=== PATIENT | male | born 1960 | race Asian ===

== ENCOUNTER 2018-09-19 21:07 | Emergency (ER) | payer BC ==
--- NOTE | 2018-09-19 21:09 | ED Physician Documentation ---
PD HPI ABD PAIN - Stated complaint Stated Complaint: ABD PX - History obtained from History obtained from: Patient - History of Present Illness Timing - onset: Enter time (13:00), Today Timing - details: Abrupt onset Pain level now: 6 Quality: Pain Location: LUQ, LLQ Radiation: Other (periumbilical) Improved by: Other (nothing) Worsened by: Other (no exacerbating factors) Associated symptoms: No: Fever, Nausea, Vomiting, Diarrhea, Constipation Similar symptoms before: Has not had sx before Recently seen: Not recently seen - Additional information Additional information: sudden onset left-sided abdominal pain since 1 PM today shortly after eating "a greasy meal" (per patient). denies nausea/vomiting. Pain is constant without exacerbating or ameliorating factors. Review of Systems Constitutional: denies: Fever, Chills, Sweats Cardiac: reports: Reviewed and negative Respiratory: reports: Reviewed and negative GI: reports: Abdominal Pain. denies: Abdominal Swelling, Nausea, Vomiting, Constipation, Diarrhea : denies: Dysuria, Frequency, Hematuria (no visible hematuria, although patient says 1 week ago he had routine testing by PMD and was told that there was trace blood on macro, none seen on micro) Musculoskeletal: denies: Back pain PD PAST MEDICAL HISTORY - Past Medical History Past Medical History: No - Past Surgical History Past Surgical History: Yes General: Other (umbilical and inguinal hernia repairs) - Present Medications Home Medications: Ambulatory Orders Medication Instructions Recorded Confirmed Oxycodone HCl/Acetaminophen 1 - 2 each PO Q6H PRN #14 tablet 09/19/18 [Percocet 5-325 mg Tablet] Tamsulosin [Flomax] 0.4 mg PO DAILY #10 capsule 09/19/18 - Allergies Allergies/Adverse Reactions: Allergies Allergy/AdvReac Type Severity Reaction Status Date / Time ibuprofen AdvReac Hives Verified 09/19/18 21:12 - Social History Does the pt smoke?: No PD ED PE NORMAL - Vitals Vital signs reviewed: Yes - General General: Alert and oriented X 3, No acute distress, Well developed/nourished - HEENT HEENT: Moist mucous membranes - Cardiac Cardiac: RRR, No murmur - Respiratory Respiratory: No respiratory distress, Clear bilaterally - Abdomen Abdomen: Normal bowel sounds, Soft, Non tender, Non distended, No organomegaly - Back Back: No CVA TTP - Derm Derm: Normal color, Warm and dry - Extremities Extremities: No edema Results - Vitals Vitals: Vital Signs - 24 hr 09/19/18 09/19/18 09/19/18 21:09 21:11 23:25 Temperature 36.1 C L Heart Rate 84 84 79 Respiratory 16 16 17 Rate Blood Pressure 179/106 H 179/106 H 163/111 H O2 Saturation 96 96 95 Oxygen O2 Source Room air - Labs Labs: Laboratory Tests 09/19/18 09/19/18 09/19/18 21:35 21:35 21:41 WBC 6.7 RBC 4.79 Hgb 14.6 Hct 44.2 MCV 92.3 MCH 30.5 MCHC 33.0 RDW 12.5 Plt Count 167 MPV 11.2 Neut # (Auto) 4.5 Lymph # (Auto) 1.4 L Hughes # (Auto) 0.6 Eos # (Auto) 0.2 Baso # (Auto) 0.0 Absolute Nucleated RBC 0.00 Nucleated RBC % 0.0 Sodium 142 Potassium 3.6 Chloride 104 Carbon Dioxide 24 Anion Gap 14.0 H BUN 19 Creatinine 1.0 Estimated GFR (MDRD) 77 L Glucose 149 H Calcium 8.8 Total Bilirubin 0.8 AST 24 ALT 25 Alkaline Phosphatase 62 Total Protein 6.7 Albumin 3.7 Globulin 3.0 Albumin/Globulin Ratio 1.2 Lipase 22 Urine Color YELLOW Urine Clarity HAZY Urine pH 5.0 Ur Specific Adger 1.025 Urine Protein NEGATIVE Urine Glucose (UA) NEGATIVE Urine Ketones TRACE Urine Occult Blood LARGE H Urine Nitrite NEGATIVE Urine Bilirubin NEGATIVE Urine Urobilinogen 0.2 (NORMAL) Ur Leukocyte Esterase NEGATIVE Urine RBC TNTC H Urine WBC 0-3 Ur Squamous Epith Cells NONE SEEN Urine Bacteria None Seen Urine Yeast PRESENT Ur Microscopic Review INDICATED Urine Culture Comments NOT INDICATED - Rads (name of study) CT A/P Radiology: Prelim report reviewed, See rad report PD MEDICAL DECISION MAKING - ED course Complexity details: reviewed results, re-evaluated patient, considered differential, d/w patient Departure - Departure Disposition: 01 Home, Self Care Clinical Impression: Renal colic Condition: Good Assessment: PT NAME: MINERVA MANDUJANO MR#: [id number] REG ER/ED AGE: 58 CI DT/TM: 09/19/18 PCP: : 1960 ATT: SEX: M ORD: Sam Conner Cristela malone MD EXAM: [id number] CT/ABPEWO ([id number]) Reason: left flank pain, hematuria Procedure Date: 09/19/2018 Accession Number: [id number] / [id number] Procedure: CT - Abdomen/Pelvis WO CPT Code: FULL RESULT: EXAM: CT ABDOMEN AND PELVIS (CT KUB) WITHOUT CONTRAST. EXAM DATE: 09/19/2018 10:25 PM. CLINICAL HISTORY: Left-sided flank pain since 8 PM. COMPARISONS: None. TECHNIQUE: Routine axial helical CT imaging was performed through the abdomen and pelvis without IV contrast. Reconstructions: Coronal and sagittal. In accordance with CT protocol optimization, one or more of the following dose reduction techniques were utilized for this exam: automated exposure control, adjustment of mA and/or KV based on patient size, or use of iterative reconstructive technique. FINDINGS: Right Kidney/Ureter: No stones. No hydronephrosis or hydroureter. No definite renal mass within the confines of a non-contrast exam. Left Kidney/Ureter: Mild left hydroureteronephrosis noted, secondary to an obstructing stone at the left UVJ measuring 4.3 mm (image 127 series 3). The stone measures 472 Hounsfield units in density. No additional intrarenal stones are seen within the left kidney. There is a 1.8 cm exophytic lesion arising from the posterior lateral portion of the left mid kidney (image 62 series 3). This measures 21 Hounsfield units in density. Abdominal Solid Organs: There is a large geographic low-density replacing the right hepatic lobe, predominantly involving segment 8, segment 7, and a small portion of segment 5/6. This may be geographic fatty infiltration. Less likely possibility is an infiltrative neoplasm. No hepatic contour deformity noted, favoring fatty infiltration. Contracted gallbladder. Other abdominal parenchymal organs are without significant abnormality within the confines of a noncontrast exam. Bowel: No evidence of bowel obstruction. There is mild pancolonic diverticulosis, including involvement of the right hemicolon. No evidence of acute diverticulitis demonstrated. Average retained fecal matter. Duodenal diverticulum arising from the second portion noted. Appendix: Normal. Lymph Nodes: No definite pathologic lymphadenopathy. Fluid: No significant ascites. Vasculature: Normal caliber aorta. Pelvis: No bladder stones. There is a small to medium fat-containing left inguinal hernia. Bones: No definite suspicious bony lesions demonstrated. Lower Chest: No significant lung base consolidation or effusion. IMPRESSION: 1. Mild left hydroureteronephrosis secondary to an obstructing 4.3 mm stone at the left UVJ. 2. No intrarenal stones are noted. 3. Indeterminate partly exophytic lesion measuring 1.8 cm arising posterior laterally from the left mid kidney. This measures 21 Hounsfield units in density. Attention on the below recommended follow-up MRI would be helpful. 4. There is a large geographic low-density within the right hepatic lobe, involving segment 7, 8, 6, and 5. This is favored to represent a fatty infiltration. However subtle infiltrative neoplasm difficult to exclude with certainty. This could be further assessed with MRI of the liver without and with Eovist contrast material at 4 weeks. [facility] Leather Splitter: Reading Radiologist: Prieto Fairchild MD Releasing Radiologist: Prieto Fairchild MD Released Date Time: 09/19/182299 Report 99 cc: Sam Britton MD [employer] Supervisor Name: Prieto Fairchild Provider ID: [email or web address] Instructions: ED Stone Renal W Colic Prescriptions: Oxycodone HCl/Acetaminophen [Percocet 5-325 mg Tablet] 1 - 2 each PO Q6H PRN #14 tablet PRN Reason: pain Tamsulosin [Flomax] 0.4 mg PO DAILY #10 capsule Comments: Follow up with urology: contact your primary care physician's office or your insurance provider to discuss obtaining a referral. You might have to be seen by your primary care provider first. PT NAME: MINERVA MANDUJANO MR#: [id number] REG ER/ED AGE: 58 CI DT/TM: 09/19/18 PCP: : 1960 ATT: SEX: M ORD: Sam malone MD EXAM: [id number] CT/ABPEWO ([id number]) Reason: left flank pain, hematuria Procedure Date: 09/19/2018 Accession Number: [id number] / [id number] Procedure: CT - Abdomen/Pelvis WO CPT Code: FULL RESULT: EXAM: CT ABDOMEN AND PELVIS (CT KUB) WITHOUT CONTRAST. EXAM DATE: 09/19/2018 10:25 PM. CLINICAL HISTORY: Left-sided flank pain since 8 PM. COMPARISONS: None. TECHNIQUE: Routine axial helical CT imaging was performed through the abdomen and pelvis without IV contrast. Reconstructions: Coronal and sagittal. In accordance with CT protocol optimization, one or more of the following dose reduction techniques were utilized for this exam: automated exposure control, adjustment of mA and/or KV based on patient size, or use of iterative reconstructive technique. FINDINGS: Right Kidney/Ureter: No stones. No hydronephrosis or hydroureter. No definite renal mass within the confines of a non-contrast exam. Left Kidney/Ureter: Mild left hydroureteronephrosis noted, secondary to an obstructing stone at the left UVJ measuring 4.3 mm (image 127 series 3). The stone measures 472 Hounsfield units in density. No additional intrarenal stones are seen within the left kidney. There is a 1.8 cm exophytic lesion arising from the posterior lateral portion of the left mid kidney (image 62 series 3). This measures 21 Hounsfield units in density. Abdominal Solid Organs: There is a large geographic low-density replacing the right hepatic lobe, predominantly involving segment 8, segment 7, and a small portion of segment 5/6. This may be geographic fatty infiltration. Less likely possibility is an infiltrative neoplasm. No hepatic contour deformity noted, favoring fatty infiltration. Contracted gallbladder. Other abdominal parenchymal organs are without significant abnormality within the confines of a noncontrast exam. Bowel: No evidence of bowel obstruction. There is mild pancolonic diverticulosis, including involvement of the right hemicolon. No evidence of acute diverticulitis demonstrated. Average retained fecal matter. Duodenal diverticulum arising from the second portion noted. Appendix: Normal. Lymph Nodes: No definite pathologic lymphadenopathy. Fluid: No significant ascites. Vasculature: Normal caliber aorta. Pelvis: No bladder stones. There is a small to medium fat-containing left inguinal hernia. Bones: No definite suspicious bony lesions demonstrated. Lower Chest: No significant lung base consolidation or effusion. IMPRESSION: 1. Mild left hydroureteronephrosis secondary to an obstructing 4.3 mm stone at the left UVJ. 2. No intrarenal stones are noted. 3. Indeterminate partly exophytic lesion measuring 1.8 cm arising posterior laterally from the left mid kidney. This measures 21 Hounsfield units in density. Attention on the below recommended follow-up MRI would be helpful. 4. There is a large geographic low-density within the right hepatic lobe, involving segment 7, 8, 6, and 5. This is favored to represent a fatty infiltration. However subtle infiltrative neoplasm difficult to exclude with certainty. This could be further assessed with MRI of the liver without and with Eovist contrast material at 4 weeks. [employer] Leather Splitter: Reading Radiologist: Prieto Fairchild MD Releasing Radiologist: Prieto Fairchild MD Released Date Time: 09/19/182299 Report 99 cc: Sam Britton MD [employer] Supervisor Name: Prieto Fairchild Provider ID: [email or web address] Discharge Date/Time: 09/19/18 23:30
[2018-09-19 21:42] LABS: BASOPHILS % (AUTO) 0.6 %; EOSINOPHILS # (AUTO) 0.2 10^3/uL (0.0-0.7); EOSINOPHILS % (AUTO) 2.5 %; HGB - HEMOGLOBIN 14.6 g/dL (14.0-18.0); LYMPHOCYTES # (AUTO) 1.4 10^3/uL (1.5-3.5); LYMPHOCYTES % (AUTO) 20.8 %; MEAN CORPUSCULAR HEMOGLOBIN 30.5 pg (27.0-31.0); MEAN CORPUSCULAR VOLUME 92.3 fL (80.0-94.0); MEAN PLATELET VOLUME 11.2 fL (7.4-11.4); MONOCYTES # (AUTO) 0.6 10^3/uL (0.0-1.0); MONOCYTES % (AUTO) 9.4 %; NEUTROPHILS # (AUTO) 4.5 10^3/uL (1.5-6.6); NEUTROPHILS % (AUTO) 66.3 %; PLT - PLATELET COUNT 167 10^3/uL (130-450); RED BLOOD COUNT 4.79 10^6/uL (4.70-6.10); RED CELL DISTRIBUTION WIDTH 12.5 % (12.0-15.0); WHITE BLOOD COUNT 6.7 x10^3/uL (4.8-10.8)
[2018-09-19 21:50] LABS: BILIRUBIN,URINE NEGATIVE (NEGATIVE); GLUCOSE, URINE (UA) NEGATIVE (NEGATIVE); KETONES,URINE (UA) TRACE mg/dL (NEGATIVE); LEUKOCYTE ESTERASE, URINE NEGATIVE (NEGATIVE); NITRITE,URINE NEGATIVE (NEGATIVE); OCCULT BLOOD,URINE LARGE (NEGATIVE); PROTEIN,URINE NEGATIVE (NEGATIVE); UROBILINOGEN,URINE 0.2 (NORMAL) E.U./dL (NORMAL)
[2018-09-19 21:56] LABS: CLARITY,URINE HAZY (CLEAR)
[2018-09-19 21:57] LABS: ALBUMIN 3.7 g/dL (3.2-5.5); ALBUMIN/GLOBULIN RATIO 1.2 (1.0-2.2); BILIRUBIN,TOTAL 0.8 mg/dL (0.2-1.0); CALCIUM 8.8 mg/dL (8.5-10.3); TOTAL PROTEIN 6.7 g/dL (6.7-8.2)
[2018-09-19 22:04] LABS: BACTERIA,URINE None Seen /HPF (None Seen); RBC,URINE TNTC /HPF (0-5); SQUAMOUS EPITHELIAL CELL,UR NONE SEEN (<= Few); YEAST,URINE PRESENT
--- NOTE | 2018-09-19 22:49 | CT Report ---
Reason: left flank pain, hematuria Procedure Date: 09/19/2018 Accession Number: [id number] / [id number] Procedure: CT - Abdomen/Pelvis WO CPT Code: FULL RESULT: EXAM: CT ABDOMEN AND PELVIS (CT KUB) WITHOUT CONTRAST. EXAM DATE: 09/19/2018 10:25 PM. CLINICAL HISTORY: Left-sided flank pain since 8 PM. COMPARISONS: None. TECHNIQUE: Routine axial helical CT imaging was performed through the abdomen and pelvis without IV contrast. Reconstructions: Coronal and sagittal. In accordance with CT protocol optimization, one or more of the following dose reduction techniques were utilized for this exam: automated exposure control, adjustment of mA and/or KV based on patient size, or use of iterative reconstructive technique. FINDINGS: Right Kidney/Ureter: No stones. No hydronephrosis or hydroureter. No definite renal mass within the confines of a non-contrast exam. Left Kidney/Ureter: Mild left hydroureteronephrosis noted, secondary to an obstructing stone at the left UVJ measuring 4.3 mm (image 127 series 3). The stone measures 472 Hounsfield units in density. No additional intrarenal stones are seen within the left kidney. There is a 1.8 cm exophytic lesion arising from the posterior lateral portion of the left mid kidney (image 62 series 3). This measures 21 Hounsfield units in density. Abdominal Solid Organs: There is a large geographic low-density replacing the right hepatic lobe, predominantly involving segment 8, segment 7, and a small portion of segment 5/6. This may be geographic fatty infiltration. Less likely possibility is an infiltrative neoplasm. No hepatic contour deformity noted, favoring fatty infiltration. Contracted gallbladder. Other abdominal parenchymal organs are without significant abnormality within the confines of a noncontrast exam. Bowel: No evidence of bowel obstruction. There is mild pancolonic diverticulosis, including involvement of the right hemicolon. No evidence of acute diverticulitis demonstrated. Average retained fecal matter. Duodenal diverticulum arising from the second portion noted. Appendix: Normal. Lymph Nodes: No definite pathologic lymphadenopathy. Fluid: No significant ascites. Vasculature: Normal caliber aorta. Pelvis: No bladder stones. There is a small to medium fat-containing left inguinal hernia. Bones: No definite suspicious bony lesions demonstrated. Lower Chest: No significant lung base consolidation or effusion. IMPRESSION: 1. Mild left hydroureteronephrosis secondary to an obstructing 4.3 mm stone at the left UVJ. 2. No intrarenal stones are noted. 3. Indeterminate partly exophytic lesion measuring 1.8 cm arising posterior laterally from the left mid kidney. This measures 21 Hounsfield units in density. Attention on the below recommended follow-up MRI would be helpful. 4. There is a large geographic low-density within the right hepatic lobe, involving segment 7, 8, 6, and 5. This is favored to represent a fatty infiltration. However subtle infiltrative neoplasm difficult to exclude with certainty. This could be further assessed with MRI of the liver without and with Eovist contrast material at 4 weeks. [facility]
[2018-09-19] MEDS ORDERED: TAMSULOSIN 0.4 MG CAPSULE PO STA (23:18)
[2018-09-19] MEDS ORDERED: oxyCODONE/ACET 5/325 Prepack 4 PO STA (23:18)
[2018-09-19 23:26] VITALS: BP 163/111
== END 2018-09-19 23:30 | disposition home or self-care (01) ==
LOC: ED 21:07
DX: N13.2 Hydronephrosis with renal and ureteral calculous obstruction (principal)
CPT/HCPCS: 36415; 74176; 80053; 81001; 83690; 85025; 99284; A9270; 81003; 87086